=== PATIENT | male | born 1950 | race Caucasian/White ===

== ENCOUNTER 2024-11-20 16:30 | Emergency (ER) | payer OTHER, MEDICARE, SELFPAY ==
--- NOTE | ~2024-11-20 | XR_ITS ---
XR shoulder LT min 2V Ordering provider: Gaby Rucker III, DO History: . fall . Comparison: None. FINDINGS: BONES: No acute fracture or dislocation. JOINT SPACES: The acromioclavicular joint shows osteoarthritic changes. The glenohumeral joint is nor mal. SOFT TISSUES: Normal. IMPRESSION: No acute osseous abnormality left shoulder. Osteoarthritic changes of the acromioclavicular joint. Reviewed, dictated and finalized at location A.
--- NOTE | ~2024-11-20 | CT_ITS ---
EXAMINATION: CT brain wo con DATE: 11/20/2024 17:38 INDICATION: Altered mental status and fall TECHNIQUE: Computed tomography (CT) of the head was performed without intravenous contrast. Sagittal and coronal reconstructions were performed. The mA was adjusted according to patient size. Iterative reconstruction technique was employed. The dose-length product was 681.00 mGy-cm. COMPARISON: None FINDINGS: No fracture. No acute intracranial hemorrhage, acute infarction or abnormal extra axial fluid collect ion. There is mild scattered white matter hypoattenuation consistent with chronic small vessel ischem ic disease. Symmetric prominence of the sulci and subarachnoid spaces overlying the convexities consi stent with mild age-appropriate diffuse cerebral volume loss. No mass/mass effect. The orbits, parana kennedy sinuses and mastoid air cells are normal. IMPRESSION: 1. Normal aging brain. No fracture or acute intracranial process. Reviewed, dictated and finalized at location A.
--- NOTE | ~2024-11-20 | XR_ITS ---
3 VIEWS THORACIC SPINE Ordering provider: Gaby Rucker III, DO History: . fall . Comparison: None. FINDINGS: VERTEBRAL BODIES: Normal height and alignment. No visible fracture or subluxation. Degenerative changes of the spine DISK SPACES: Normal. SOFT TISSUES: Normal. IMPRESSION: No acute osseous abnormality of the thoracic spine. Reviewed, dictated and finalized at location A.
--- NOTE | ~2024-11-20 | CT_ITS ---
CT cervical spine wo con Ordering provider: Carlos Krishna History: . fall/ams . Comparison: None. Technique: CT of the cervical spine was performed without contrast. Sagittal and coronal reformatted images were also obtained and reviewed. Automated exposure control and iterative reconstruction juan manuel hnique were employed. The dose-length product was 489.29 mGy-cm. FINDINGS: VERTEBRAE: No subluxation or acute fracture. The occipital condyles are intact. Degenerative changes of the spine. DISC SPACES: Severe degenerative disc disease at the level of C6-C7. Multilevel facet joint disease. Multilevel uncovertebral joint osteoarthritic changes. Narrowing of the right foramen at the level of C2-C3, C3-C4. Bilateral narrowing of the foramina at t he level of C4-C5, C5-C6 and C6-C7. PARASPINOUS SOFT TISSUES: Normal. IMPRESSION: No acute osseous abnormality cervical spine. Degenerative disc disease at the level of C6-C7. Multilevel intervertebral foraminal narrowing. Reviewed, dictated and finalized at location A.
[2024-11-20 16:53] VITALS: BP 174/97; PULSE 67; RESP 14; TEMP 36.8; O2SAT 98
--- NOTE | 2024-11-20 16:57 | ED.FALL ---
HPI - Fall General Chief Complaint: Fall <Gaby Dhruv Rucker III, DO - Last Filed: 11/20/24 18:46> Stated Complaint: fall-10 stairs- poss LOC, AMS <Gaby Dhruv Rucker III, DO - Last Filed: 11/20/24 18:46> Time Seen by Provider: 11/20/24 16:44 <Gaby Dhruv Rucker III, DO - Last Filed: 11/20/24 18:46> History of Present Illness HPI Narrative: Pt was running up steps and slipped and fell backward down the stairs striking head. Pt had LOC and does not remember a few minutes but remembers everything since. Pt has some pain to back of head and mild pain to left shoulder. Pt denies any numbness or weakness in extremities. <Gaby Dhruv Rucker III, DO - Last Filed: 11/20/24 18:46> Related Data Allergies/Adverse Reactions: Allergies Allergy/AdvReac Type Severity Reaction Status Date / Time No Known Allergies Allergy Verified 11/20/24 17:03 <Gaby Dhruv Rucker III, DO - Last Filed: 11/20/24 18:46> Review of Systems Review of Systems: All systems reviewed & are unremarkable except as noted in HPI and below <Gaby Dhruv Rucker III, DO - Last Filed: 11/20/24 18:46> Exam Const: General: healthy appearing and no acute distress <Gaby Dhruv Rucker III, DO - Last Filed: 11/20/24 18:46> Nutritional Appearance: well nourished <Gaby Dhruv Rucker III, DO - Last Filed: 11/20/24 18:46> Orientation/consciousness: patient oriented x3 <Gaby Dhruv Rucker III, DO - Last Filed: 11/20/24 18:46> Limitations: no limitations <Gaby Dhruv Rucker III, DO - Last Filed: 11/20/24 18:46> HENMT: Head: hematoma left occipital and right occipital <Gaby Dhruv Rucker III, DO - Last Filed: 11/20/24 18:46> Eyes: Pupils: Equal, round and reactive pupils present <Gaby Dhruv Rucker III, DO - Last Filed: 11/20/24 18:46> EOM: EOMs intact bilaterally <Gaby Dhruv Rucker III, DO - Last Filed: 11/20/24 18:46> Resp: Effort & Inspection: normal respiratory effort <Gaby Dhruv Rucker III, DO - Last Filed: 11/20/24 18:46> Auscultation: clear to auscultation bilaterally <Gaby Dhruv Rucker III, DO - Last Filed: 11/20/24 18:46> Cardio: Rate: regular rate <Gaby Dhruv Rucker III, DO - Last Filed: 11/20/24 18:46> Rhythm: regular rhythm <Gaby Dhruv Rucker III, DO - Last Filed: 11/20/24 18:46> GI: Auscultation: normal bowel sounds <Gaby Dhruv Rucker III, DO - Last Filed: 11/20/24 18:46> Back/Spine/Pelvis: Back: no CVA tenderness <Gaby Dhruv Rucker III, DO - Last Filed: 11/20/24 18:46> Skin: General skin exam: normal color <Gaby Dhruv Rucker III, DO - Last Filed: 11/20/24 18:46> Rashes: no rashes <Gaby Dhruv Rucker III, DO - Last Filed: 11/20/24 18:46> Wounds: no wounds <Gaby Dhruv Rucker III, DO - Last Filed: 11/20/24 18:46> Neuro: General: patient oriented x3 and moves all extremities <Gaby Dhruv Rucker III, DO - Last Filed: 11/20/24 18:46> Cranial nerves: Yes Nystagmus not present <Gaby Dhruv Rucker III, DO - Last Filed: 11/20/24 18:46> Speech: normal speech <Gaby Dhruv Rucker III, DO - Last Filed: 11/20/24 18:46> Extrem: Other: minima left shoulder tenderness but good rom <Gaby Dhruv Rucker III, DO - Last Filed: 11/20/24 18:46> Psych: Mental Status: mental status grossly normal <Gaby Dhruv Rucker III, DO - Last Filed: 11/20/24 18:46> Affect: normal affect <Gaby Dhruv Rucker III, DO - Last Filed: 11/20/24 18:46> Attitude: cooperative <Gaby Dhruv Rucker III, DO - Last Filed: 11/20/24 18:46> Course [employer]/PA Physician Supervision Patient was signed out to me by previous provider Dr. Rucker pending imaging results and likely discharge home. Patient was re-evaluated and doing well. He was provided pain medications including low-dose oxycodone, Tylenol and ibuprofen. His laboratory studies reassuring as well as imaging studies showing no acute osseous abnormalities or fractures. Patient re-evaluated having improved pain control and no complaints at this time and expressing desire to go home. Patient given strict return precautions given his mechanism injury however he can be safely discharged at this time and family members were comfortable with the plan and will drive him home. <Jerad Hicks MD - Last Filed: 11/20/24 20:12> Vital Signs Vital signs: Vital Signs Temperature 36.8 C 11/20/24 16:53 Pulse Rate 67 11/20/24 16:53 Respiratory Rate 14 11/20/24 16:53 Blood Pressure 174/97 H 11/20/24 16:53 Pulse Oximetry 98 11/20/24 16:53 Oxygen Delivery Room Air 11/20/24 16:53 Temperature 36.8 C 11/20/24 16:53 Pulse Rate 60 11/20/24 18:11 Respiratory Rate 15 11/20/24 18:11 Blood Pressure 178/89 H 11/20/24 18:11 Pulse Oximetry 99 11/20/24 18:11 Oxygen Delivery Room Air 11/20/24 16:53 <Gaby Rucker III, DO - Last Filed: 11/20/24 18:46> Vital Signs Temperature 36.8 C 11/20/24 16:53 Pulse Rate 67 11/20/24 16:53 Respiratory Rate 14 11/20/24 16:53 Blood Pressure 174/97 H 11/20/24 16:53 Pulse Oximetry 98 11/20/24 16:53 Oxygen Delivery Room Air 11/20/24 16:53 Temperature 36.8 C 11/20/24 16:53 Pulse Rate 60 11/20/24 18:11 Respiratory Rate 15 11/20/24 18:11 Blood Pressure 178/89 H 11/20/24 18:11 Pulse Oximetry 99 11/20/24 18:11 Oxygen Delivery Room Air 11/20/24 16:53 <Jerad Hicks MD - Last Filed: 11/20/24 20:12> MDM - Fall MDM Narrative Medical decision making narrative: Pt had fall down 10 steps with LOC. will get labs and CT head and neck. head ct and labs and ekg unremarkable. Pt has pain midline between shoulder blades now so will get t spine x ray. Still awaiting ct of c spine. Will turn over to Dr Do at 1900 awaiting these studies but likely discharge home. <Gaby Bartlett Rucker III, DO - Last Filed: 11/20/24 18:46> Lab Data Result diagrams: 11/20/24 17:15 11/20/24 17:15 <Gaby Dhruv Dalyver III, DO - Last Filed: 11/20/24 18:46> Labs: Lab Results 11/20/24 Range/Units 17:15 WBC 6.8 (4.5-10.0) K/mm3 RBC 5.08 (4.6-6.20) M/mm3 Hgb 15.6 (14.0-18.0) g/dL Hct 49.1 (42.0-52.0) % MCV 96.7 (80-100) fl MCH 30.7 (26-34) pg MCHC 31.8 L (32-36) g/dl RDW 12.8 (11.5-14.5) % Plt Count 203 (150-375) k/mm3 MPV 9.8 (7.4-10.4) fl Immature Gran % (Auto) 1.0 H (0-0.5) % Neut % (Auto) 60.8 (45.5-73.1) % Lymph % (Auto) 25.6 (18.3-44.2) % [place] % (Auto) 7.2 (2.6-8.5) % Eos % (Auto) 4.4 (0-4.4) % Baso % (Auto) 1.0 (0.2-1.2) % Lymph # (Auto) 1.74 (0.9-3.2) K/mm3 [place] # (Auto) 0.5 (0.1-0.6) K/mm3 Eos # (Auto) 0.3 (0-0.3) K/mm3 Baso # (Auto) 0.1 (0.0-0.1) K/mm3 Abs Immat Gran (auto) 0.07 H (0.00-0.031) K/mm3 Absolute Neuts (auto) 4.1 (1.3-6.7) K/mm3 Absolute Nucleated RBC 0.000 (0.0-0.012) K/mm3 Nucleated RBC % 0.0 (0.0-0.2) % PT 13.5 (11.1-14.7) Seconds INR 1.0 APTT 30.7 (22.3-36.8) Seconds Sodium 141 (137-145) mmol/L Potassium 4.4 (3.4-5.0) mmol/L Chloride 105 (98-107) mmol/L Carbon Dioxide 29 (22-30) mmol/L Anion Gap 7 (4-12) mmol/L BUN 21 H (9-20) mg/dL Creatinine 0.97 (0.7-1.3) mg/dL Estim Creat Clear Calc 63 ml/min Estimated GFR > 60 (59 - ) Glucose 110 (65-110) mg/dL Calcium 9.0 (8.4-10.2) mg/dL Magnesium 2.2 (1.6-2.3) mg/dL Total Bilirubin 0.4 (0.2-1.3) mg/dL AST 41 (17-59) U/L ALT 38 (6-50) U/L Alkaline Phosphatase 63 (38-126) U/L Troponin I < 0.012 (0.000-0.034) ng/mL Total Protein 8.0 (6.3-8.2) g/dL Albumin 4.5 (3.5-5.1) g/dL <Gaby Rucker III, DO - Last Filed: 11/20/24 18:46> Lab Results 11/20/24 Range/Units 17:15 WBC 6.8 (4.5-10.0) K/mm3 RBC 5.08 (4.6-6.20) M/mm3 Hgb 15.6 (14.0-18.0) g/dL Hct 49.1 (42.0-52.0) % MCV 96.7 (80-100) fl MCH 30.7 (26-34) pg MCHC 31.8 L (32-36) g/dl RDW 12.8 (11.5-14.5) % Plt Count 203 (150-375) k/mm3 MPV 9.8 (7.4-10.4) fl Immature Gran % (Auto) 1.0 H (0-0.5) % Neut % (Auto) 60.8 (45.5-73.1) % Lymph % (Auto) 25.6 (18.3-44.2) % [place] % (Auto) 7.2 (2.6-8.5) % Eos % (Auto) 4.4 (0-4.4) % Baso % (Auto) 1.0 (0.2-1.2) % Lymph # (Auto) 1.74 (0.9-3.2) K/mm3 [place] # (Auto) 0.5 (0.1-0.6) K/mm3 Eos # (Auto) 0.3 (0-0.3) K/mm3 Baso # (Auto) 0.1 (0.0-0.1) K/mm3 Abs Immat Gran (auto) 0.07 H (0.00-0.031) K/mm3 Absolute Neuts (auto) 4.1 (1.3-6.7) K/mm3 Absolute Nucleated RBC 0.000 (0.0-0.012) K/mm3 Nucleated RBC % 0.0 (0.0-0.2) % PT 13.5 (11.1-14.7) Seconds INR 1.0 APTT 30.7 (22.3-36.8) Seconds Sodium 141 (137-145) mmol/L Potassium 4.4 (3.4-5.0) mmol/L Chloride 105 (98-107) mmol/L Carbon Dioxide 29 (22-30) mmol/L Anion Gap 7 (4-12) mmol/L BUN 21 H (9-20) mg/dL Creatinine 0.97 (0.7-1.3) mg/dL Estim Creat Clear Calc 63 ml/min Estimated GFR > 60 (59 - ) Glucose 110 (65-110) mg/dL Calcium 9.0 (8.4-10.2) mg/dL Magnesium 2.2 (1.6-2.3) mg/dL Total Bilirubin 0.4 (0.2-1.3) mg/dL AST 41 (17-59) U/L ALT 38 (6-50) U/L Alkaline Phosphatase 63 (38-126) U/L Troponin I < 0.012 (0.000-0.034) ng/mL Total Protein 8.0 (6.3-8.2) g/dL Albumin 4.5 (3.5-5.1) g/dL <Jerad Hicks MD - Last Filed: 11/20/24 20:12> Discharge Plan Discharge Clinical Impression: CHI (closed head injury), Musculoskeletal pain, Fall down stairs <Gaby Rucker III, DO - Last Filed: 11/20/24 18:46> Patient Disposition: Home <Gaby Rucker III, DO - Last Filed: 11/20/24 18:46> Condition: Stable <Gaby Rucker III, DO - Last Filed: 11/20/24 18:46> Instructions: Antibiotic Form, Muscle Strain (ED), Concussion (ED), Contusion in Adults (ED) <Gaby Rucker III, DO - Last Filed: 11/20/24 18:46> Additional Instructions: We will send you home with some pain control medications as well as muscle relaxers for any aches or pains. Follow-up with regular doctor. Return if you have any worsening pain or new developing symptoms. <Gaby Rucker III, DO - Last Filed: 11/20/24 18:46> Patient Language: Wolof <Gaby Rucker III, DO - Last Filed: 11/20/24 18:46> Prescriptions: New ibuprofen 800 mg tablet 800 mg PO TID PRN (Reason: pain) Qty: 30 0RF acetaminophen [Tylenol Extra Strength] 500 mg tablet 1,000 mg PO TID PRN (Reason: pain) Qty: 30 0RF methocarbamol 750 mg tablet 750 mg PO TID PRN (Reason: pain) Qty: 20 0RF lidocaine 5 % adhesive patch,medicated 1 patch topical DAILY Qty: 15 0RF Rx Instructions: leave on most painful area for up to 12 hrs <Gaby Rucker III, DO - Last Filed: 11/20/24 18:46> Follow-up/Referrals: UNKNOWN,DOCTOR [Primary Care Provider] - <Gaby Rucker III DO - Last Filed: 11/20/24 18:46> Time of Disposition: 20:12 <Gaby Rucker III, DO - Last Filed: 11/20/24 18:46> 20:12 <Jerad Hicks MD - Last Filed: 11/20/24 20:12>
--- NOTE | 2024-11-20 17:19 | ECG_ITS ---
Test Date: 2024-11-20 18:08:43 Measurements Intervals [place] Rate: 61 P: 67 RI: 168 QRS: 33 QRSD: 93 T: 39 QT: 397 QTc: 403 Interpretive Statements SINUS RHYTHM WITH SINUS ARRHYTHMIA NORMAL ECG No previous ECG available for comparison Electronically Signed On 11-21-2024 08:02:59 CDT by Polo Hein M.D.
[2024-11-20 17:21] LABS: Basophils Absolute Auto 0.1 K/mm3 (0.0-0.1); Eosinophils Absolute Auto 0.3 K/mm3 (0-0.3); Eosinophils Percent Auto 4.4 % (0-4.4); Hematocrit 49.1 % (42.0-52.0); Hemoglobin 15.6 g/dL (14.0-18.0); Immature Granulocyte Absolute 0.07 K/mm3 (0.00-0.031); Lymphocytes Absolute Auto 1.74 K/mm3 (0.9-3.2); Lymphocytes Percent Auto 25.6 % (18.3-44.2); Mean Corpuscular HGB Conc 31.8 g/dl (32-36); Mean Corpuscular Hemoglobin 30.7 pg (26-34); Mean Corpuscular Volume 96.7 fl (80-100); Mean Platelet Volume 9.8 fl (7.4-10.4); Monocytes Absolute Auto 0.5 K/mm3 (0.1-0.6); Monocytes Percent Auto 7.2 % (2.6-8.5); Neutrophils Absolute Auto 4.1 K/mm3 (1.3-6.7); Neutrophils Percent Auto 60.8 % (45.5-73.1); Platelet Count Result 203 k/mm3 (150-375); Red Blood Count 5.08 M/mm3 (4.6-6.20); Red Cell Distribution Width 12.8 % (11.5-14.5); White Blood Count 6.8 K/mm3 (4.5-10.0)
[2024-11-20 17:32] LABS: Prothrombin Time 13.5 Seconds (11.1-14.7)
[2024-11-20 17:33] LABS: Partial Thromboplastin Time 30.7 Seconds (22.3-36.8)
[2024-11-20 17:35] LABS: Alanine Aminotransferase 38 U/L (6-50); Albumin Level 4.5 g/dL (3.5-5.1); Alkaline Phosphatase 63 U/L (38-126); Anion Gap 7 mmol/L (4-12); Aspartate Amino Transferase 41 U/L (17-59); Bilirubin,Total 0.4 mg/dL (0.2-1.3); Blood Urea Nitrogen 21 mg/dL (9-20); Carbon Dioxide 29 mmol/L (22-30); Chloride 105 mmol/L (98-107); Estimated CRCL calculation 63 ml/min; Estimated Glomerular Filt Rate > 60; Glucose 110 mg/dL (65-110); Magnesium 2.2 mg/dL (1.6-2.3); Potassium 4.4 mmol/L (3.4-5.0); Sodium 141 mmol/L (137-145)
[2024-11-20 17:47] LABS: Troponin I < 0.012 ng/mL (0.000-0.034)
[2024-11-20 18:11] VITALS: BP 178/89; PULSE 60; RESP 15; O2SAT 99
--- OUTSIDE RECORDS SUMMARY | 2024-11-20 18:22 | XMS_ITS | Data Portability ---
Author Organization [facility], [facility] Address [address] [place] [address] Assessment Encounter Date Assessment Date Assessment LastModified by Organization Details LastModified Time 08/07/2022 08/07/2022 HCM-Colonoscopy was due 2020. GI referral placed for colonoscopy again. Shots: Shingrix as directed. [facility]/Scan Not available 08/07/2022 11:48:22 09/26/2022 09/26/2022 Due for labs and f/u in November. Not available 09/26/2022 14:09:34 11/20/2022 11/20/2022 HCM-Colonoscopy was due 2020. GI referral placed for colonoscopy twice before and he declines due to his age. Shots: Covid booster and Shingrix as directed. [facility]/Scan Not available 11/20/2022 11:58:15 10/21/2023 10/21/2023 HCM-Colonoscopy was due 2020. GI referral placed for colonoscopy twice before and he declines due to his age. Shots: Covid booster and Shingrix as directed. No longer [facility] Not available 10/21/2023 17:51:55 11/16/2024 11/16/2024 HCM-Colonoscopy was due 2020. GI referral placed for colonoscopy twice before and he declines due to his age. Shots: Covid booster and Shingrix #2 as directed. No longer [facility]. Plays golf at [employer]. Patient s : 5-10 YEAR PLAN was reviewed with patient at time of visit. Questions and timing of services added to the plan were made during visit. During the Annual Wellness Visit : ADL/IADL s,Cognition, Fall Risk, and Depression were completed. There were no issues that needs to be addressed. Not available 11/16/2024 19:09:57 Plan of Treatment Reminders Order Date Submit Date Provider Last Modified By Organization Details Last Modified Time Details Appointments None recorded. Lab HbA1c (hemoglobi n A1c), blood 2024 026 [facility], [address], [place], [address], 18:55:45 CMP, serum or plasma 2024 026 [facility], [address], [place], [address], 18:55:45 lipid panel, serum 2024 026 [facility], [address], [place], [address], 18:55:45 HbA1c (hemoglobi n A1c), blood 2023 025 [facility], [address], [place], [address], 11:26:37 CMP, serum or plasma 2023 025 [facility], [address], [place], [address], 11:26:38 lipid panel, serum 2023 025 [email or web address] [facility], [address], [place], [address], 5 11:26:38 HbA1c (hemoglobi n A1c), blood 2022 024 [email or web address] [facility], [address], [place], [address], 4 11:26:39 CMP, serum or plasma [id number] [facility], [address], [place], [address], 4 11:26:39 lipid panel, serum [email or web address] [facility] [address] [facility], [address], [place], [address], 4 11:26:39 HbA1c (hemoglobi n A1c), blood 2022 023 [facility], [address], [place], [address], 3 08:51:18 CBC w/ diff 2022 023 [facility], [address], [place], [address], 3 09:37:33 CMP, serum or plasma 2022 023 [facility], [address], [place], [address], 3 09:37:34 PT/PTT, plasma 2022 023 [facility], [address], [place], [address], 3 08:06:27 urinalysis complete, reflex culture 2022 023 [facility], [address], [place], [address], 3 09:37:35 HbA1c (hemoglobi n A1c), blood 2022 023 [facility], [address], [place], [address], 3 13:06:45 Referral dermatolog ist referral - EVAL AND TREAT 2022 023 [email or web address] [facility], [address], [place], [address], 3 10:28:41 gastroente rologist referral - EVAL AND TREAT 2022 023 [email or web address] Frankie Shaffer, [address], [place], [address], 3 12:30:46 physical therapist referral - EVAL AND TREAT 2022 023 [email or web address] [facility], [address], [place], [address], 3 10:27:44 sports medicine referral - EVAL AND TREAT 2022 023 [email or web address] Justin Padilla DO, [address], [place], [address], 3 10:51:54 Procedures None recorded. Surgeries None recorded. Imaging XR, chest, 2 view 2023 024 [facility] (Central Scheduling All Locations), [address], [place], [address], 4 10:37:15 electrocar diogram 2022 023 [email or web address] In-Office Order, Internal Use Only DO Not Attach Compendium DO Not Attach Compendium, Do Not Delete/merge, [id number] 3 14:23:09 Medication Orders omeprazole 20 mg capsule,de layed release 2024 025 [facility] [id number], [address], [place], [address], 5 18:55:51 hydrocorti sone 2.5 % topical cream with perineal applicator 2024 025 JOSELO [facility] [id number], [address], [place], [address], 18:55:52 tamsulosin 0.4 mg capsule 2023 024 [email or web address] [facility] [id number], [address], [place], [address], 18:34:38 Patient TargetsNo targets recorded. Patient Instructions Encounter Date Encounter Id Patient Instructions Last Modified By Organization Details Last Modified Time 08/07/2022 [id number] eating healthy foods: care instructions Not available 08/07/2022 12:00:10 09/26/2022 [id number] A healthy lifestyle: care instructions Not available 09/26/2022 14:16:49 eating healthy foods: care instructions Not available 09/26/2022 14:16:49 11/20/2022 [id number] A healthy lifestyle: care instructions Not available 11/20/2022 11:54:48 eating healthy foods: care instructions Not available 11/20/2022 11:54:48 10/21/2023 [id number] A healthy lifestyle: care instructions Not available 10/21/2023 17:49:22 eating healthy foods: care instructions Not available 10/21/2023 17:49:22 11/16/2024 [id number] eating healthy foods: care instructions Not available 11/16/2024 18:55:45 A healthy lifestyle: care instructions Not available 11/16/2024 18:55:45 preventing falls in the hospital: care instructions Not available 11/16/2024 18:55:45 advance care planning: care instructions Not available 11/16/2024 18:55:45 COUNSELING & COORDINATION of CARE {{Yes No N/A}}: Increase Exercise {{Yes No N/A}}: Encourage Weight Loss {{Yes No N/A}}: Decrease Fat {{Yes No N/A}}: Diabetic Patient Counseling {{Yes No N/A}}: Smoking Cessation {{Yes No N/A}}: Decrease Alcohol {{Yes No N/A}}: Decrease Salt {{Yes No N/A}}: Increase Fiber {{Yes No N/A}}: Increase H20 {{Yes* No N/A}}: Counseled patient regarding Lab/Dx/need for follow-up {{Yes No N/A}}: Discussed medications, side effects, & compliance {{Yes No N/A}}: Dental Care {{Yes No N/A}}: Eye Exam Not available 11/16/2024 15:32:50 Reason for Referral Physical Therapist Referral for Osteoarthritis of hip EVAL AND TREAT Referring Physician: Damian Gillespie [facility], Encounter Date: 08/07/2022 EVAL AND TREAT Referring Physician: Damian Gillespie [facility], Encounter Date: 08/07/2022 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 malignant neoplasm of colon Eval/Treat EVAL AND TREAT Referring Physician: Damian Gillespie [facility], Encounter Date: 08/07/2022 Procedures Tech Referral for R osacea Eval/Treat EVAL AND TREAT Referring Physician: Damian Gillespie [facility], Encounter Date: 08/07/2022 Results Created Date Observation Date Name Description Value Unit Range Abnormal Flag Note LastModifiedBy Organization Detail LastModifiedTime 08/03/19 23 08/04/2022 HEMOG LOBIN A1C WITH EAG hemoglobin A1C 6.1 % <=5.6 high The Ameri can Diabe nohelia Assoc iatio n (ADA) guide lines for inter preti ng Hemog lobin A1c are as follo ws: Non-D iabet ic patie nt: <=5.6 % Incre ased risk for futur e Diabe nohelia: 5.7-6 .4% ADA diagn ostic crite pelon for Diabe nohelia: >=6.5 % Value s for patie nts with Diabe nohelia: Meets ADA's recom candace d goal for thera py: <7.0% Excee ds ADA's recom candace d goal: 7.0-8 .0% ADA recom mends reeva luati on of thera py: >8.0% [TC] Not Available [facility] [address], [address], 08/04/2022 03:09:05 08/03/19 23 08/04/2022 HEMOG LOBIN A1C WITH EAG estimated average glucose (EAG) 128 not establ ished If the prese nce of a hemog lobin varia nt is suspe cted, do not use % HbA1c resul ts for diagn osis of diabe nohelia melli tus. In uncon troll ed diabe tics, high level s of Hemog lobin F (Hb F) may be prese nt. Prese nce of Hb F great er than 7% of total may resul t in lower than expec lori % HbA1c . Any cause that short ens eryth rocyt e survi judy or decre ases mean eryth rocyt e age may reduc e expec lori % HbA1c value s even in the prese nce of eleva lori avera ge blood gluco se. Cause s may inclu de hemol ytic disea se, homoz ygous sickl e cell trait , pregn jayden, and recen t signi fican t/chr onic blood loss. In addit ion, recen t blood trans fusio ns can alter expec lori % HbA1c value s. [TC] Not Available [facility] [address], [address], 08/04/2022 03:09:05 08/03/19 23 08/04/2022 COMPR EHENS XU METAB OLIC PANEL W/EGF R (14) glucose 107 mg/dL 70 - 99 high Gluco se refer ence range refle cts fasti ng state . [TC] Not Available [facility] [address], [address], 08/04/2022 03:09:05 08/03/19 23 08/04/2022 COMPR EHENS XU METAB OLIC PANEL W/EGF R (14) urea nitrogen (BUN) 14 mg/dL 8 - 36 normal [TC] Not Available [facility] [address], [address], 08/04/2022 03:09:05 08/03/19 23 08/04/2022 COMPR EHENS XU METAB OLIC PANEL W/EGF R (14) creatinine 0.95 mg/dL 0.60 - 1.50 normal [TC] Not Available [facility] [address], [address], 08/04/2022 03:09:05 08/03/19 23 08/04/2022 COMPR EHENS XU METAB OLIC PANEL W/EGF R (14) egfrcr CKD-epi 84 mL/mi n/1.7 3m2 >=60 normal eGFRc r calcu lated using the CKD-E PI 2020 equat ion [TC] Not Available [facility] [address], [address], 08/04/2022 03:09:05 08/03/19 23 08/04/2022 COMPR EHENS XU METAB OLIC PANEL W/EGF R (14) BUN/creatini ne ratio 14.7 10.0 - 28.0 normal [TC] Not Available [facility] [address], [address], 08/04/2022 03:09:05 08/03/19 23 08/04/2022 COMPR EHENS XU METAB OLIC PANEL W/EGF R (14) sodium 138 mmol/ L 135 - 145 normal [TC] Not Available [facility] [address], [address], 08/04/2022 03:09:05 08/03/19 23 08/04/2022 COMPR EHENS XU METAB OLIC PANEL W/EGF R (14) potassium 4.7 mmol/ L 3.6 - 5.3 normal [TC] Not Available [facility] [address], [address], 08/04/2022 03:09:05 08/03/19 23 08/04/2022 COMPR EHENS XU METAB OLIC PANEL W/EGF R (14) chloride 100 mmol/ L 95 - 109 normal [TC] Not Available [facility] [address], [address], 08/04/2022 03:09:05 08/03/19 23 08/04/2022 COMPR EHENS XU METAB OLIC PANEL W/EGF R (14) carbon dioxide (co2) 27 mmol/ L 20 - 31 normal [TC] Not Available [facility] [address], [address], 08/04/2022 03:09:05 08/03/19 23 08/04/2022 COMPR EHENS XU METAB OLIC PANEL W/EGF R (14) anion gap 11 4 - 18 normal [TC] Not Available [facility] [address], [address], 08/04/2022 03:09:05 08/03/19 23 08/04/2022 COMPR EHENS XU METAB OLIC PANEL W/EGF R (14) protein, total 7.7 g/dL 6.0 - 7.7 normal [TC] Not Available [facility] [address], [address], 08/04/2022 03:09:05 08/03/19 23 08/04/2022 COMPR EHENS XU METAB OLIC PANEL W/EGF R (14) albumin 4.6 g/dL 3.8 - 5.1 normal [TC] Not Available [facility] [address], [address], 08/04/2022 03:09:05 08/03/19 23 08/04/2022 COMPR EHENS XU METAB OLIC PANEL W/EGF R (14) globulin 3.1 g/dL 1.7 - 3.3 normal Note: New refer ence range effec tive 2022 [TC] Not Available [facility] [address], [address], 08/04/2022 03:09:05 08/03/19 23 08/04/2022 COMPR EHENS XU METAB OLIC PANEL W/EGF R (14) albumin/glob ulin ratio 1.5 1.3 - 2.7 normal Note: New refer ence range effec tive 2022 [TC] Not Available [facility] [address], [address], 08/04/2022 03:09:05 08/03/19 23 08/04/2022 COMPR EHENS XU METAB OLIC PANEL W/EGF R (14) calcium 9.3 mg/dL 8.7 - 10.4 normal [TC] Not Available [facility] [address], [address], 08/04/2022 03:09:05 08/03/19 23 08/04/2022 COMPR EHENS XU METAB OLIC PANEL W/EGF R (14) alkaline phosphatase 88 IU/L 40 - 140 normal [TC] Not Available [facility] [address], [address], 08/04/2022 03:09:05 08/03/19 23 08/04/2022 COMPR EHENS XU METAB OLIC PANEL W/EGF R (14) alanine aminotransfe rase 36 IU/L 5 - 60 normal [TC] Not Available [facility] [address], [address], 08/04/2022 03:09:05 08/03/19 23 08/04/2022 COMPR EHENS XU METAB OLIC PANEL W/EGF R (14) aspartate aminotransfe rase 23 IU/L 12 - 47 normal [TC] Not Available [facility] [address], [address], 08/04/2022 03:09:05 08/03/19 23 08/04/2022 COMPR EHENS XU METAB OLIC PANEL W/EGF R (14) bilirubin, total 0.5 mg/dL <=1.3 normal [TC] Not Available [facility] [address], [address], 08/04/2022 03:09:05 08/03/19 23 08/04/2022 LIPID PANEL cholesterol 163 mg/dL <=199 normal [TC] Not Available [facility] [address], [address], 08/04/2022 03:09:06 08/03/19 23 08/04/2022 LIPID PANEL triglyceride 111 mg/dL <=149 normal [TC] Not Available [facility] [address], [address], 08/04/2022 03:09:06 08/03/19 23 08/04/2022 LIPID PANEL cholesterol/ HDL ratio 4.7 <=4.9 normal [TC] Not Available [facility] [address], [address], 08/04/2022 03:09:06 01/27/20 23 08/04/2022 LIPID PANEL HDL cholesterol 35 mg/dL >=40 low [TC] Not Available [facility] [address], [address], 08/04/2022 03:09:06 08/03/19 23 08/04/2022 LIPID PANEL non-HDL cholesterol 128 mg/dL <=129 normal [TC] Not Available [facility] [address], [address], 08/04/2022 03:09:06 08/03/1908/04/2022 LIPID PANEL LDL cholesterol, calculated 108 mg/dL <=99 high LDL-C is calcu lated by using the Cecilia n-Hop kins equat ion. (MICHAEL . 2013; 310(1 9):20 61-20 68) For moder ately high risk and high risk cardi ac patie nts, refer ence level s of <100 mg/dL and <70 mg/dL , respe ctive ly, shoul d be consi dered . Circu latio n 2004; 110:2 27-23 9. [TC] Not Available [facility] [address], [address], 08/04/2022 03:09:06 08/03/19 23 08/04/2022 LIPID PANEL VLDL cholesterol 20 mg/dL <=29 normal [TC] Not Available [facility] [address], [address], 08/04/2022 03:09:06 09/27/19 23 09/27/2022 PT AND PTT - AMB prothrombin time 12.3 secon ds 9.4 - 12.5 normal [TC] Not Available [facility] [address], [address], 09/27/2022 08:06:27 09/27/19 23 09/27/2022 PT AND PTT - AMB INR 1.1 0.9 - 1.1 normal It is advis ed to monit or patie nts based on INR value s. INR thera peuti c range s in adult s 18 and older (Casey mmend ation only) : Moder ate-i ntens ity Warfa rin Thera py: 2.0-3 .0 Highe r-int ensit y Warfa rin Thera py: 2.5-3 .5 [TC] Not Available [facility] [address], [address], 09/27/2022 08:06:27 09/27/1909/27/2022 PT AND PTT - AMB partial thromboplast in time 35.6 secon ds 24.0 - 36.5 normal A Hepar in level detec tion by anti- Xa activ ity metho d is recom candace d for patie nts on unfra ction ated Hepar in. [TC] Not Available [facility] [address], [address], 09/27/2022 08:06:27 09/27/1911/20/2022 HEMOG LOBIN A1C WITH EAG hemoglobin A1C 5.5 % <=5.6 normal The Ameri can Diabe nohelia Assoc iatio n (ADA) guide lines for inter preti ng Hemog lobin A1c are as follo ws: Non-D iabet ic patie nt: <=5.6 % Incre ased risk for futur e Diabe nohelia: 5.7-6 .4% ADA diagn ostic crite pelon for Diabe nohelia: >=6.5 % Value s for patie nts with Diabe nohelia: Meets ADA's recom candace d goal for thera py: <7.0% Excee ds ADA's recom candace d goal: 7.0-8 .0% ADA recom mends reeva luati on of thera py: >8.0% [TC] Not Available [facility] [address], [address], 11/20/2022 07:30:28 09/27/1911/20/2022 HEMOG LOBIN A1C WITH EAG estimated average glucose (EAG) 111 not establ ished If the prese nce of a hemog lobin varia nt is suspe cted, do not use % HbA1c resul ts for diagn osis of diabe nohelia melli tus. In uncon troll ed diabe tics, high level s of Hemog lobin F (Hb F) may be prese nt. Prese nce of Hb F great er than 7% of total may resul t in lower than expec lori % HbA1c . Any cause that short ens eryth rocyt e survi judy or decre ases mean eryth rocyt e age may reduc e expec lori % HbA1c value s even in the prese nce of eleva lori avera ge blood gluco se. Cause s may inclu de hemol ytic disea se, homoz ygous sickl e cell trait , pregn jayden, and recen t signi fican t/chr onic blood loss. In addit ion, recen t blood trans fusio ns can alter expec lori % HbA1c value s. [TC] Not Available [facility] [address], [address], 11/20/2022 07:30:28 09/27/1909/27/2022 COMPL ETE BLOOD COUNT WITH AUTO DIFF WBC 6.8 k/mm3 4.0 - 11.0 normal [TC] Not Available [facility] [address], [address], 09/27/2022 09:37:33 09/27/1909/27/2022 COMPL ETE BLOOD COUNT WITH AUTO DIFF RBC 5.05 m/mm3 4.30 - 6.00 normal [TC] Not Available [facility] [address], [address], 09/27/2022 09:37:33 09/27/19 23 09/27/2022 COMPL ETE BLOOD COUNT WITH AUTO DIFF hemoglobin 15.5 g/dL 13.0 - 18.0 normal [TC] Not Available [facility] [address], [address], 09/27/2022 09:37:33 09/27/19 23 09/27/2022 COMPL ETE BLOOD COUNT WITH AUTO DIFF hematocrit 48.5 % 40.0 - 53.0 normal [TC] Not Available [facility] [address], [address], 09/27/2022 09:37:33 09/27/19 23 09/27/2022 COMPL ETE BLOOD COUNT WITH AUTO DIFF MCV 96.0 fL 78.0 - 100.0 normal [TC] Not Available [facility] [address], [address], 09/27/2022 09:37:33 09/27/19 23 09/27/2022 COMPL ETE BLOOD COUNT WITH AUTO DIFF MCH 30.7 pg 27.0 - 34.0 normal [TC] Not Available [facility] [address], [address], 09/27/2022 09:37:33 09/27/1909/27/2022 COMPL ETE BLOOD COUNT WITH AUTO DIFF MCHC 32.0 g/dL 31.0 - 37.0 normal [TC] Not Available [facility] [address], [address], 09/27/2022 09:37:33 09/27/19 23 09/27/2022 COMPL ETE BLOOD COUNT WITH AUTO DIFF platelet count 288 k/mm3 130 - 450 normal [TC] Not Available [facility] [address], [address], 09/27/2022 09:37:33 09/27/19 23 09/27/2022 COMPL ETE BLOOD COUNT WITH AUTO DIFF RDW(SD) 46.8 fL 38.0 - 49.0 normal [TC] Not Available [facility] [address], [address], 09/27/2022 09:37:33 09/27/19 23 09/27/2022 COMPL ETE BLOOD COUNT WITH AUTO DIFF RDW(CV) 13.2 % 11.0 - 15.0 normal [TC] Not Available [facility] [address], [address], 09/27/2022 09:37:33 09/27/19 23 09/27/2022 COMPL ETE BLOOD COUNT WITH AUTO DIFF MPV 10.6 fL 7.5 - 14.0 normal [TC] Not Available [facility] [address], [address], 09/27/2022 09:37:33 09/27/19 23 09/27/2022 COMPL ETE BLOOD COUNT WITH AUTO DIFF segmented neutrophils 54.4 % Autom ated Diff [TC] Not Available [facility] [address], [address], 09/27/2022 09:37:33 09/27/19 23 09/27/2022 COMPL ETE BLOOD COUNT WITH AUTO DIFF lymphocytes 30.2 % [TC] Not Available [facility] [address], [address], 09/27/2022 09:37:33 09/27/19 23 09/27/2022 COMPL ETE BLOOD COUNT WITH AUTO DIFF monocytes 9.2 % [TC] Not Available [facility] [employer] [facility] [address], [address], 09/27/2022 09:37:33 09/27/1909/27/2022 COMPL ETE BLOOD COUNT WITH AUTO DIFF eosinophils 4.0 % [TC] Not Available [facility] [address], [address], 09/27/2022 09:37:33 09/27/1909/27/2022 COMPL ETE BLOOD COUNT WITH AUTO DIFF basophils 1.6 % [TC] Not Available [facility] [employer] [facility] [address], [address], 09/27/2022 09:37:33 09/27/1909/27/2022 COMPL ETE BLOOD COUNT WITH AUTO DIFF absolute neutrophil 3.68 k/uL 1.60 - 9.30 normal [TC] Not Available [facility] [address], [address], 09/27/2022 09:37:33 09/27/19 23 09/27/2022 COMPL ETE BLOOD COUNT WITH AUTO DIFF absolute lymphocyte 2.04 k/uL 0.60 - 5.50 normal [TC] Not Available [facility] [address], [address], 09/27/2022 09:37:33 09/27/19 23 09/27/2022 COMPL ETE BLOOD COUNT WITH AUTO DIFF absolute monocyte 0.62 k/uL 0.10 - 1.60 normal [TC] Not Available [facility] [address], [address], 09/27/2022 09:37:33 09/27/19 23 09/27/2022 COMPL ETE BLOOD COUNT WITH AUTO DIFF absolute eosinophil 0.27 k/uL 0.00 - 0.70 normal [TC] Not Available [facility] [address], [address], 09/27/2022 09:37:33 09/27/19 23 09/27/2022 COMPL ETE BLOOD COUNT WITH AUTO DIFF absolute basophil 0.11 k/uL 0.00 - 0.20 normal [TC] Not Available [facility] [address], [address], 09/27/2022 09:37:33 09/27/19 23 09/27/2022 COMPL ETE BLOOD COUNT WITH AUTO DIFF immature granulocytes 0.6 % [TC] Not Available [facility] [address], [address], 09/27/2022 09:37:33 09/27/19 23 09/27/2022 COMPL ETE BLOOD COUNT WITH AUTO DIFF absolute immature granulocytes 0.04 k/uL 0.00 - 0.10 normal [TC] Not Available [facility] [address], [address], 09/27/2022 09:37:33 09/27/19 23 09/27/2022 COMPL ETE BLOOD COUNT WITH AUTO DIFF NRBC re, nucleated red blood cell percent 0.0 % 0.0 - 1.0 normal [TC] Not Available [facility] [address], [address], 09/27/2022 09:37:33 09/27/19 23 09/27/2022 COMPR EHENS XU METAB OLIC PANEL W/EGF R (14) glucose 93 mg/dL 70 - 99 normal Gluco se refer ence range refle cts fasti ng state . [TC] Not Available [facility] [address], [phone], 09/27/2022 09:37:34 09/27/19 23 09/27/2022 COMPR EHENS XU METAB OLIC PANEL W/EGF R (14) urea nitrogen (BUN) 23 mg/dL 8 - 36 normal [TC] Not Available [facility] [address], [phone], 09/27/2022 09:37:34 09/27/19 23 09/27/2022 COMPR EHENS XU METAB OLIC PANEL W/EG FR (14) creatinine 0.87 mg/dL 0.60 - 1.50 normal [TC] Not Available [facility] [address], [phone], 09/27/2022 09:37:34 09/27/19 23 09/27/2022 COMPR EHENS XU METAB OLIC PANEL W/EGF R (14) egfrcr CKD-epi 90 mL/mi n/1.7 3m2 >=60 normal eGFRc r calcu lated using the CKD-E PI 2020 equat ion [TC] Not Available [facility] [address], [phone], 09/27/2022 09:37:34 09/27/19 23 09/27/2022 COMPR EHENS XU METAB OLIC PANEL W/EGF R (14) BUN/creatini ne ratio 26.4 10.0 - 28.0 normal [TC] Not Available [facility] [address], [phone], 09/27/2022 09:37:34 09/27/19 23 09/27/2022 COMPR EHENS XU METAB OLIC PANEL W/EGF R (14) sodium 137 mmol/ L 135 - 145 normal [TC] Not Available [facility] [address], [address], 09/27/2022 09:37:34 09/27/19 23 09/27/2022 COMPR EHENS XU METAB OLIC PANEL W/EGF R (14) potassium 4.7 mmol/ L 3.6 - 5.3 normal [TC] Not Available [facility] [address], [address], 09/27/2022 09:37:34 09/27/19 23 09/27/2022 COMPR EHENS XU METAB OLIC PANEL W/EGF R (14) chloride 101 mmol/ L 95 - 109 normal [TC] Not Available [facility] [address], [address], 09/27/2022 09:37:34 09/27/19 23 09/27/2022 COMPR EHENS XU METAB OLIC PANEL W/EGF R (14) carbon dioxide (co2) 26 mmol/ L 20 - 31 normal [TC] Not Available [facility] [address], [address], 09/27/2022 09:37:34 09/27/19 23 09/27/2022 COMPR EHENS XU METAB OLIC PANEL W/EGF R (14) anion gap 10 4 - 18 normal [TC] Not Available [facility] [address], [address], 09/27/2022 09:37:34 09/27/19 23 09/27/2022 COMPR EHENS XU METAB OLIC PANEL W/EGF R (14) protein, total 8.0 g/dL 6.0 - 7.7 high [TC] Not Available [facility] [address], [address], 09/27/2022 09:37:34 09/27/19 23 09/27/2022 COMPR EHENS XU METAB OLIC PANEL W/EGF R (14) albumin 4.8 g/dL 3.8 - 5.1 normal [TC] Not Available [facility] [address], [address], 09/27/2022 09:37:34 09/27/19 23 09/27/2022 COMPR EHENS XU METAB OLIC PANEL W/EGF R (14) globulin 3.3 g/dL 1.7 - 3.3 normal Note: New refer ence range effec tive 2022 [TC] Not Available [facility] [address], [address], 09/27/2022 09:37:34 09/27/19 23 09/27/2022 COMPR EHENS XU METAB OLIC PANEL W/EGF R (14) albumin/glob ulin ratio 1.5 1.3 - 2.7 normal Note: New refer ence range effec tive 2022 [TC] Not Available [facility] [address], [address], 09/27/2022 09:37:34 09/27/19 23 09/27/2022 COMPR EHENS XU METAB OLIC PANEL W/EGF R (14) calcium 9.6 mg/dL 8.7 - 10.4 normal [TC] Not Available [facility] [address], [address], 09/27/2022 09:37:34 09/27/19 23 09/27/2022 COMPR EHENS XU METAB OLIC PANEL W/EGF R (14) alkaline phosphatase 84 IU/L 40 - 140 normal [TC] Not Available [facility] [address], [address], 09/27/2022 09:37:34 09/27/19 23 09/27/2022 BHARAT MCNAIR MET [id number]|2024-11-20 18:22:00|2024-11-20 18:22:00|XMS_ITS|HOSEAG EUGENIA|External Medical Summaries|[id number]|" Clinical Summary Created on: November 20, 2024 Miko Carr : 1950 Sex: Male Author Organization [facility] Address [address] [place] [address] Care Team Providers Care Database Coordinator Name Role Phone Unavailable Primary Care Provider Unavailabl e Immunizations Name Administration Dates Next Due Covid-19 SARS CoV-2(Moderna) 09/19/2020,08/19/19 21 Social History Tobacco Use Types Packs/Day Years Used Date Smoking Tobacco: Never Assessed Domestic Violence Screen Answer Date Re corded Physical Abuse Risk Unknown 08/25/2023 Verbal Abuse Risk Unknown 08/25/2023 Sex and Gender Information Value Date Recorded Sex Assigned at Not on file Legal Sex Male 9:54 AM [facility] Gender Identity Not on file Sexual Orientation Not on file Plan of Treatment Health Maintenance Due Date Last Done Comments Colon Cancer Screening: CT 1993 Colon Cancer Screening: Cologuard 1993 Colon Cancer Screening: Colonoscopy 1993 Colon Cancer Screening: FOBT 1993 Colon Cancer Screening: Flexible Sigmoidoscopy 1993 Colon Cancer Screening 1993 Screening for Future Fall Risk 2013 Zoster (2 of 3) 01/12/2017 11/17/2016 Influenza (#1) 2024 03/23/2020, 03/09, 04/07/2018, Additional history exists COVID-19 Vaccine ( season) 2024 09/19/2020, 08/19/2020 Pneumococcal 50+ Completed 11/17/2016, 04/2013, 03/17/2013 Hepatitis A Aged Out No longer eligi ble based on patient's age to complete this topic Hepatitis B Aged Out No longer eligi ble based on patient's age to complete this topic "
--- NOTE | 2024-11-20 19:14 | PC.NURSE ---
received report from GUALBERTO Castillo for cont. of care. Pt lying on stretcher with C-Collar in place, and on continuos insurance associate. Pt provided with an update on plan of care, and all questions answered at this time.
[2024-11-20 19:46] VITALS: BP 162/75; PULSE 66; RESP 15; O2SAT 95
[2024-11-20] MEDS: ACETAMINOPHEN 500 MG TABLET 1000 MG PO (20:14)
[2024-11-20 20:15] VITALS: PULSE 79; RESP 17; O2SAT 98
[2024-11-20] MEDS: IBUPROFEN 400 MG TABLET 800 MG PO (20:15)
[2024-11-20] MEDS: oxyCODONE HCL (*CRX) 2.5 MG TAB IR PO (20:15)
== END 2024-11-20 20:31 | disposition home or self-care (01) ==
PROVIDERS: Emergency Provider Emergency Medicine
DX: S09.90XA Unspecified injury of head, initial encounter (principal); M25.512 Pain in left shoulder; W10.9XXA Fall (on) (from) unspecified stairs and steps, initial encounter
CPT/HCPCS: 36415; 70450; 72072; 72125; 73030; 80053; 83735; 84484; 85025; 85610; 85730; 93005; 99284; A9270